=== PATIENT | male | born 1980 | race Caucasian/White ===

== ENCOUNTER → 2018-10-27 08:54 | Outpatient (CLI) | payer OTHER, SELFPAY ==
--- NOTE | 2018-10-29 16:47 | PM.PFT.1 ---
Pulmonary Function Test Referral & Results Date Patient Seen: 10/27/18 Requesting provider: Aracelis Roth Results: The spirometry demonstrates an FVC of 4.32 L which is 81% of predicted. The FEV1 was measured at 3.16 L which is 74% of predicted. The FEV1/FVC ratio was 73 which is 91% of predicted. Following the administration of bronchodilator there was no appreciable change. Lung volumes show an SVC of 4.51 L which is 88% of predicted. The diffusing capacity was measured at 35.59 which is 110% of predicted. The maximum voluntary ventilation was normal Interpretation: This study demonstrates perhaps mild obstructive lung disease based on slight reduction in FEV1. There is no evidence of significant benefit following bronchodilator administration
== END ==
PROVIDERS: PCP Internal Medicine; Visit Provider Internal Medicine
DX: J45.909 Unspecified asthma, uncomplicated (principal)
CPT/HCPCS: 94060; 94726; 94729